=== PATIENT | male | born 1955 | race Caucasian/White ===

== ENCOUNTER → 2016-09-16 | Outpatient (CLI) | payer OTHER ==
[~2016-09-16] MED LIST: ALTACE10 MG PO; ASPIRIN (CHILDR81 MG PO; BRILINTA90 MG PO; FOLIC ACID1 MG PO; LEVEMIR FL100 UNIT/1 SUB-Q; LIPITOR80 MG PO; LOPRESSOR25 MG PO; NOVOLOG FL100 UNIT/1 SUB-Q; VASOTEC2.5 MG PO
--- NOTE | ~2016-09-16 | ENPV ---
Vascular Lower Arterial Plethysmography Procedure Demographics Patient Name BRIDGET CHAMBERS Date of Study 09/16/2016 Patient Number [id number] Gender Male Date of 1955 Age 60 Visit Number [id number] Height Accession Number [id number] Weight Room Number BSA BMI Referring Denia Gutierrez MD Interpreting Daphne Gee Physician Physician Physician Ordering Denia Trujillo Retort Or Condenser Press Operator Physician Brenda TELLES Hotel Service Supervisor Uriah Leo [facility] Conclusions Summary Ankle brachial index on the right is 1.1 no significant arterial disease at rest. The ankle brachial index is greater than 1.4 on the left therefore the ankle vessels are calcified and not compressible. Unable to obtain toe waveforms or pressures. Waveforms appear to be monophasic bilaterally. Procedure Type of Study: Extremities Arteries:Lower Arterial Plethysmography, Ankle/Brachial Indicies. Indications for Study:Ulcer/gangrene. Appropriate Use Criteria:9 Allergies - No known allergies. Blood Pressure:Right arm 137/ mmHg.Left arm 140/ mmHg. Patient Status:Routine. Study Location:Vascular Lab. Technical Quality:Adequate visualization. Velocities are measured in cm/s ; Diameters are measured in cm Pressures + +----+ +---------+--------+ + + ! ! !Right ! !Left ! ! ! + +----+ +---------+--------+ + + !Location ! !Pressure !Ratio ! !Pressure !Ratio ! + +----+ +---------+--------+ + + !Ankle PT ! !135 !0.96 ! !76 !0.54 ! + +----+ +---------+--------+ + + !DP ! !154 !1.1 ! !192 !1.37 ! + +----+ +---------+--------+ + + - Brachial Pressure:Right: 137.Left:140. - IVY:Right: 1.1.Left: 1.37. Signature dtt: Adrián Serna dtd: 09/16/16 1447 Physician Self Edit
== END | disposition disaster alternative care site (69) ==
LOC: GCAR 14:30
DX: L97.519 Non-pressure chronic ulcer of other part of right foot with unspecified severity (principal)

== ENCOUNTER 2016-11-04 23:28 | Inpatient (IN) | payer OTHER ==
[~2016-11-04] VITALS: Ht 172.7 cm; Wt 87.8 kg
--- NOTE | ~2016-11-04 | HP ---
PATIENT'S NAME: BRIDGET CHAMBERS [facility] AGE: 61 Y [address] ROOM: [place] [address] LOCATION: GPCU ADMIT DATE: 11/05/2016 History & Physical DISCHARGE DATE: FAMILY PHYSICIAN: Ronnie Loza MD ATTENDING PHYSICIAN: SUHA HUGO DATE OF SERVICE: CHIEF COMPLAINT: Left arm pain and exertional dyspnea. HISTORY OF PRESENT ILLNESS: This is a 61-year-old male who says that for the last few days he has been experiencing exertional dyspnea and on and off chest tightness and also some left arm pain. Today, in the early afternoon, during rest, the patient again felt this pain in the left arm radiating to the left side of the face, intensity about 4 to 6/10 and is constant. He denies any chest pain now. Patient came here for evaluation. The patient denies any other symptoms. REVIEW OF SYSTEMS: As mentioned in the history of present illness. All other systems were reviewed and they were negative except for those mentioned in the history of present illness. PAST MEDICAL HISTORY: 1. Coronary artery disease, status post CABG and also cardiac stents placed in the past. 2. Last cardiac cath was done in July 2012 and it showed 3-vessel coronary artery disease and the three of the three grafts are patent. Normal left ventricular systolic function. Negative vessel distal anastomosis are extremely small, most likely accountable for his angina. Recommend maximizing medical therapy. 3. Most recent echocardiogram on [facility] and per patient was back in July 2012. At that time, EF was 55% to 60%. 4. Hypertension. 5. Hyperlipidemia. 6. Diabetes, type 2. 7. Gastroesophageal reflux disease. ALLERGIES: NONE. HOME MEDICATIONS: 1. Atorvastatin 80 mg p.o. daily. PATIENT'S NAME: BRIDGET CHAMBERS [facility] AGE: 61 Y [address] ROOM: [place] [address] LOCATION: GPCU ADMIT DATE: 11/05/2016 History & Physical DISCHARGE DATE: FAMILY PHYSICIAN: Ronnie Loza MD ATTENDING PHYSICIAN: SUHA HUGO 2. Lopressor 25 mg p.o. b.i.d. 3. Ramipril 10 mg p.o. b.i.d. 4. Levemir subcutaneous 35 units twice a day. 5. NovoLog subcutaneous 13 units in the morning, 13 units before lunch, and 15 units before dinner. SOCIAL HISTORY: The patient was a former cigarette smoker. He quit back in 1977. He smoke about half pack per day for 5 years. He denies any alcohol or any illegal drug use. FAMILY HISTORY: Both parents had coronary artery disease before age 50. PAST SURGICAL HISTORY: 1. CABG and cardiac stents in the past, several years ago. 2. Cholecystectomy. PHYSICAL EXAMINATION: VITAL SIGNS: At the time of evaluation, temperature 98, heart rate was 84, blood pressure was 166/98, respiration was 14, saturation was 98% on room air. GENERAL APPEARANCE: Alert and oriented x3, in no acute distress. HEENT: Pupils are equally round and reactive to light. Extraocular muscles intact. Anicteric sclerae. Nasal turbinates are normal bilaterally. Moist oral mucosa. RESPIRATORY: Clear to auscultation. No rales. No rhonchi. No crackles. No wheezing. CARDIOVASCULAR: Normal S1, S2. No murmur. No rubs. No gallops. Regular rate and rhythm. ABDOMEN: Soft, nontender, nondistended, bowel sounds present, no mass. EXTREMITIES: He has a trace pitting edema in bilateral lower extremities. NEUROLOGICAL: Grossly nonfocal. SKIN: No ulcer. No rash. No cyanosis. MUSCULOSKELETAL: No joint pain. No muscle pain. Range of motion intact. LABORATORY DATA: CPK 186, troponin 1.14, proBNP 1166. White blood cell 10.2, hemoglobin 15.7, hematocrit 45.9, platelet 223, glucose 469. BUN 26, creatinine 1.5 sodium 133, potassium 4.2, chloride 100, CO2 of 23, calcium 8.5, total protein 7.5, albumin 3.5, AST 31, ALT 46, alkaline phosphatase 156. Total bilirubin 0.4, magnesium 1.9. Anion gap 14.2. INR 0.96, PTT 27. GFR 49. CK-MB 4.6. IMAGING STUDY: Chest x-ray currently is being ordered. PATIENT'S NAME: BRIDGET CHAMBERS [facility] AGE: 61 Y [address] ROOM: [place] [address] LOCATION: GPCU ADMIT DATE: 11/05/2016 History & Physical DISCHARGE DATE: FAMILY PHYSICIAN: Ronnie Loza MD ATTENDING PHYSICIAN: SUHA HUGO EKG on admission on November 04, 2016, at 11:35 p.m., shows sinus rhythm, heart rate of 87 beats per minutes. GA of 174 milliseconds. QRS of 112 milliseconds. QTc of [address] do [address] depression in lead I and aVL in the lateral leads. No ST elevation. No T-wave inversion. There is left axis deviation. Compared to the prior EKG back in July 2012 also had sinus rhythm, heart rate of 63. At that time, also had the left axis deviation, but there was no ST depression in lateral leads in I or aVL. ASSESSMENT AND PLAN: 1. Regarding his NSTEMI: We will continue with ACS protocol with IV heparin drip and I will also start him on IV nitroglycerin drip for the hypertension control given that currently the blood pressure in the 160s, the goal will be keeping below 140. I will continue his home medicationS including aspirin and Lopressor and atorvastatin, but I will hold the ramipril because the patient seems to have acute kidney injury, given his creatinine is at 1.5, GFR of 49, and I do not know what his baseline is. Therefore, I will hold the ramipril in the setting of possible acute kidney injury. We will get an echo in the morning and telemetry monitoring. Cardiology consult in the morning. Cycle enzymes every 6 hours. Further plan will depend on clinical course. In addition, I will check A1c and lipid panel in the morning as well. 2. Regarding his acute kidney injury: I will give hydration with IV normal saline at maintenance rate of 75 mL/h and also do the Mucomyst p.o. He is not acidotic; therefore, I am not going to give him any sodium bicarbonate for now. We will check a renal panel again in the morning. 3. Regarding his diabetes, type 2: We will check A1c in the morning. Currently, the glycemia is 469. I will give him 1 dose of the high dose subcutaneous NovoLog according to the aggressive dose table and then we will put him on the home regimen subcu Levemir. I will do the half of the home regimen. If he takes 35 units twice a day, I will do half of that twice a day and titrate as necessary. In addition, I will put him on a sliding scale with subcu regular insulin q.4 hours with moderate dose. We will titrate as necessary. 4. Regarding his history of coronary artery disease: See #1 for details in the plan. 5. Regarding his hypertension: Currently, blood pressure is 170. I will control with IV nitroglycerin drip with a goal of 140. In addition, continue the home Lopressor with holding parameters. 6. Regarding his gastroesophageal reflux disease: I will give him p.o. Protonix 40 mg daily. 7. Regarding his hyperlipidemia: Continue the home Lipitor 80 mg p.o. daily. 8. He is a full code. PATIENT'S NAME: BRIDGET CHAMBERS [facility] AGE: 61 Y [address] ROOM: [place] [address] [facility] ADMIT DATE: 11/05/2016 History & Physical DISCHARGE DATE: FAMILY PHYSICIAN: Ronnie Loza MD ATTENDING PHYSICIAN: SUHA HUGO 9. His DVT prophylaxis is with IV heparin drip currently. Total time spent in care was 45 minutes, were 10 minutes was spent on chart review, and the remainder of the time was spent on counseling, including going over the plan of care in detail with the patient and the patient's as well as answering all the questions and concerns to their satisfaction. This time also includes physical examination and also interview. Further plan will depend on clinical course. SUHA HUGO MD CC/keiral /[id number] D: [id number] T: 145 HISTORY & PHYSICAL
--- NOTE | ~2016-11-04 | CATH ---
Cardiac Diagnostic + PCI Report Demographics Patient Name TRISH Ortiz Gender Male Date of 1955 Age 61 year(s) Patient Number [id number] Date of Study 11/05/2016 Visit Number [id number] Room Number G63[address] [place] [id number] Ht 172.72 cm Wt 89.3 kg Referring Erik Shaffer MD Primary Physician Physician Denia Penn MD Performing [facility] Secondary Physician Physician Isamar TELLES Diagnostic [facility] Assisting Physician Physician Isamar TELLES Interventional [facility] Physician Hand Packer Physician Isamar TELLES Findings and Conclusions Diagnostic Findings and Conclusion Critical TVD in [place] coronaries. Compared with [facility] in 2013, SVG to RCA is occluded at origin, I did not reimage RCA, known severe disease on prior caths in 2012 and 2010 with diffuse 90% stenosis, proximal, mid and distal RCA. Radial to diagonal graft is patent with obstructive disease, 80% proximally, focal and eccentric, and 60-70% in mid portion that appears hazy/thrombotic. ANDRADE to LAD is patent. There is diffuse disease in Cx, distal to mid stent that is unchanged from 2013, Prox and mid Cx stents are patent with 30% ISR. His [place] vessels distal to grafts are diffusely diseased and very small. Diagnostic Recommendations PCI of radial graft to diagonal. This appears to be the culprit for non stemi. New ST depressions in leads 1,aVL compared with ecg in 2013. [place] RCA has diffuse disease throughout entirety, on cath films in 2013. Interventional Findings and Conclusion Successful PCI of radial graft to diagonal at proximal and mid portion with 2 LOUIS, filter wire used for protection given hazy appearance of lesion in mid graft to avoid distal embolization. Interventional Recommendations Continue current medications. Hydration and followup creatinine. Patient has been instructed to not lift anything more than 5 pounds for 1 week. Optimize LV systolic function. Aggressive risk factor management. Aggressive medical therapy for coronary artery disease. Recommend aggressive risk factor modification. Antiplatelet will be given . Dual Anti-platelet therapy. Cardiac diet . Optimization of medical therapy as an outpatient. I would like to thank Dr. Valencia for the opportunity to participate in the care of Mr. Campbell . Procedure Description The patient was brought to the diagnostic cardiac catheterization-EP laboratory in the fasting, non-sedated state. Informed consent was obtained in the written and verbal form after the risks and benefits were explained. The patient had no further questions and agreed to proceed. The planned puncture-incision site(s) were shaved and prepped with ChloraPrep and draped in the usual sterile manner. Conscious sedation, supplemental oxygen, and pain control medications were delivered by a registered nurse under physician guidance. Surface ECG rhythm, blood pressure measurement, and pulse oximetry were monitored throughout the procedure. Arterial access. The access site was infiltrated with lidocaine. The vessel was entered with the Seldinger technique. A sheath was advanced into the vessel and used for catheter placement. Selective left coronary angiography. A catheter was advanced into the left coronary vessel ostium under Fluoroscopic guidance. Contrast was injected by hand. Images were obtained in multiple projections. Selective right coronary angiography. A catheter was advanced into the right coronary vessel ostium under fluoroscopic guidance. Contrast was injected by hand. Images were obtained in multiple projections. Selective ANDRADE graft angiography. A catheter was advanced into the left internal mammary graft ostium under fluoroscopic guidance. Contrast was injected by hand. Images were obtained in multiple projections. Selective SVG angiography. A catheter was advanced into the graft proximal anastomosis under fluoroscopic guidance. Contrast was injected by hand. Images were obtained in multiple projections. Selective Free Radial angiography. A catheter was advanced into the free radial graft proximal anastomosis under fluoroscopic guidance. Contrast was injected by hand. Images were obtained in multiple projections. Angioplasty and Stent Placement: A guiding catheter was used to intubate the vessel. A 0.14 wire was then used to cross the lesion. A balloon catheter was placed across the lesion and inflated. The balloon catheter was then removed. A Drug Eluting Stent was placed and inflated. Post placement angiograms were performed. Arterial artery hemostasis. Hemostasis was achieved. The patient was transferred to a regular nursing floor via cart accompanied by a nurse. The patient left the laboratory in stable condition. Diagnostic Cath Status: Urgent Interventional Cath Status: Urgent Procedure Procedure Type Diagnostic procedure:Angiography:, Coronary Angios w/Grafts PCI procedure:Drug Eluting Coronary Stent:, Graft, PTCA:, Graft Indications: Non-ST elevation UT. The procedure was explained in detail to the patient. Risks, complications and alternative treatments were reviewed. Written consent was obtained. Medications Reviewed with Patient prior to Procedure. Angiographic Findings Dominance: Right Cardiac Arteries and Lesion Findings LMCA: Normal (0% Stenosis). LAD: ANDRADE to LAD patent Lesion on Prox LAD: 30% stenosis . Lesion on Mid LAD: 100% stenosis . Lesion on 1st Dia% stenosis . LCx: No significant changes from 2013 Cx small OM1 small Lesion on Prox CX: 50% stenosis . The lesion was previously treated with the following techniques: stent unknown type. This is in-stentrestenosis. Lesion on Mid CX: 60% stenosis . Lesion on Dist CX: 80% stenosis . RCA: Lesion on Prox RCA: Ostial.100% stenosis .Chronic total occlusion. Graft Lesions Lesion on Aorta Right to Dist RCA: Proximal anastomosis.100% stenosis . Lesion on Aorta Left to 1st Diag: Proximal body.80% stenosis 16 mm length reduced to 0%. Pre procedure REGIS III flow was noted. Post Procedure REGIS III flow was present. The lesion was diagnosed as a high risk lesion.The lesion was eccentric.Culprit lesion. Treatment results:Interventional treatment was successful. Devices used - Emerge Balloon 2.5 x 15. 1 inflation(s) to a max pressure of: 12 sly. - Promus Premier 3.0 x 16 Stent. 1 inflation(s) to a max pressure of: 12 sly. Lesion on Aorta Left to 1st Diag: Middle body.70% stenosis 16 mm length reduced to 0%. Pre procedure REGIS III flow was noted. Post Procedure REGIS III flow was present. The lesion was diagnosed as a high risk lesion.Culprit lesion. Treatment results:Interventional treatment was successful. Devices used - Filterwire 190 cm. Number of passes: 1. - Promus Premier 3.0 x 16 Stent. 1 inflation(s) to a max pressure of: 12 sly. - Emerge Balloon 3.0 x 12. 1 inflation(s) to a max pressure of: 14 sly. - BMW Wire .014 x 190. Number of passes: 1. Cardiac Grafts - There is a Vein graft that originates at the Aorta Right and attaches to the Dist RCA ( occluded). - There is a Radial graft that originates at the Aorta Left and attaches to the 1st Diag. - There is a ANDRADE graft that originates at the ANDRADE and attaches to the Dist LAD (Patent). Coronary Tree Procedure Data Procedure Date Date: 11/05/2016Start: 09:27 AMEnd: 10:29 AM Entry Locations - Retrograde Percutaneous access was performed through the Right Femoral artery (Primary location). A 6 Fr sheath was inserted. Hemostasis was successfully obtained using Angio-Seal STS PLUS ([place]). Closure Comments: Deployed by Danial. Procedure Medications Order and Administration + + + + + !Time !Medication !Dosage !Route ! + + + + + !11/05/2016 09:25 !Versed !1 mg !I.V. ! !AM ! ! ! ! + + + + + 11/05/2016 09:25 !Fentanyl !50 mcg !I.V. ! !AM ! ! ! ! + + + + + 11/05/2016 09:33 !Oxygen !2 l/min !NC ! !AM ! ! ! ! + + + + + !11/05/2016 09:34 !Oxygen !2 l/min !Mask ! !AM ! ! ! ! + + + + + !11/05/2016 09:43 !Angiomax (Bivalirudin) !67.5 mg !I.V. bolus ! !AM !(ACC_5) ! ! ! + + + + + !11/05/2016 09:45 !Angiomax (Bivalirudin) !1.75 mg/kg/hr!I.V. drip ! !AM !(ACC_5) ! ! ! + + + + 11/05/2016 09:56 !Nipride !100 mcg !I.C. ! !AM ! ! ! ! + + + + + !11/05/2016 10:00 !Nipride !100 mcg !I.C. ! !AM ! ! ! ! + + + + + !11/05/2016 10:05 !Nipride !100 mcg !I.C. ! !AM ! ! ! ! + + + + + !11/05/2016 10:11 !Nipride !100 mcg !I.C. ! !AM ! ! ! ! + + + + + !11/05/2016 10:19 !Oxygen !2 !Mask ! !AM ! ! ! ! + + + + + !11/05/2016 10:20 !Brilinta (Ticagrelor) !180 mg !P.O. ! !AM !(ACC_20) ! ! ! + + + + + !11/05/2016 10:23 !Nitroglycerin ! !I.V. drip ! !AM ! ! ! ! + + + + + Devices Used - A6 Fr. BS JL 4 Diag. Catheterwas used for:Left coronary angiography. - A5 Fr. BS JR 4 Diag. Catheterwas used for:Right coronary angiography. - A6 Fr. JR4 Guide Catheterwas used for:RCA Intervention. - A5 Fr. BS JR 4 Diag. Catheterwas used for:Radial Graft. Contrast Material - Isovue [id number] ml Fluoroscopy Time: Diagnostic: 19:24 minutes. Total: 19:24 minutes. Fluoroscopy Dose: Diagnostic: 2607 mGy. Total: 2607 mGy. Estimated Blood Loss: 15 ml. Additional [facility] PCI Information PCI Indication:PCI for high risk Non-STEMI or unstable angina. Medical History Allergies - Other:(Acetominophen, Phenylephrine, Chlorpheniramine). Risk Factors The patient risk factors include:prior PCI on 08/28/2010;prior CABG;treated hypercholesterolemia, treated hypertension, insulin-treated diabetes mellitus, last creatinine: 1.1 mg/dl, creatinine clearance: 86.82 ml/min, dyslipidemia and former tobacco use. Admission Data Admission Date: 11/05/2016 Admission Time: 12:30 AM Admit Source: Emergency department Insurance Payors: Private health insurance. Admission Medications + +------+------+ + + + + !Medication !Dosage!Times !Last !Last !Administered !Comments ! ! ! !Per !Delivery !Delivery ! ! ! ! ! !Day !Date !Time ! ! ! + +------+------+ + + + + !Beta ! ! ! ! !Yes ! ! !Aya ! ! ! ! ! ! ! !(any) ! ! ! ! ! ! ! + +------+------+ + + + + Clinical Evaluation Leading to Procedure - The patient's CAD presentation was assessed as: Non-STEMI. - The patient's anginal syndrome during the past two weeks was assessed as: Class IV according to the [place] Cardiovascular Society Classification System (CCS). Anti-anginal medications were prescribed during the past two weeks. The medication is: Beta Blockers. Hemodynamics Condition: Rest O2 Consumption: Estimated: 240.91Heart Rate: 75 bpm Pressures (mmHg) +-----+ + !Site !Pressure ! +-----+ + !AO !112/54 (74) ! +-----+ + !AO !115/ (88) ! +-----+ + Shunts Oxygen Values O2 Capacity 213.52 O2 Consumption 240.91 Signatures dtt: ISAMAR LINARES dtd: 11/05/16 0927 Physician Self Edit
--- NOTE | ~2016-11-04 | ER ---
PATIENT'S NAME: BRIDGET CHAMBERS [facility] AGE: 61 Y [address] ROOM: [place] [address] LOCATION: GPCU ADMIT DATE: 11/05/2016 ER/Outpatient Report DISCHARGE DATE: FAMILY PHYSICIAN: Ronnie Loza MD ATTENDING PHYSICIAN: SUHA HUGO Time Of Arrival: 2331 hours. Time of Evaluation: 2331 hours. CHIEF COMPLAINT: Chest pain. HISTORY OF PRESENT ILLNESS: The patient is a 61-year-old male who presents to the emergency department today with a chief complaint of chest pain. He also reports that he has had some shortness of breath and dyspnea on exertion over the past 3 days. He reports it is primarily left arm pain. It increased today. He denies any diaphoresis with this. He denies any fevers or chills. No nausea or vomiting. No diarrhea or constipation. PAST MEDICAL HISTORY: Coronary artery disease, insulin-dependent diabetes, dyslipidemia, hypertension, and gastroesophageal reflux disease. PAST SURGICAL HISTORY: CABG, cholecystectomy, eye, and stent placement in 2010. SOCIAL HISTORY: The patient denies any tobacco, alcohol, or illicit drug use. ALLERGIES: TO A SORT OF COLD MEDICINE. MEDICATIONS: Please see list. PRIMARY CARE DOCTOR: Dr. Loza. CLINICAL CARE MANAGER: Dr. Valencia. REVIEW OF SYSTEMS: All systems are reviewed by myself and are negative with the exception of those discussed in the HPI and past medical history. PATIENT'S NAME: BRIDGET CHAMBERS [facility] AGE: 61 Y [address] ROOM: [place] [address] LOCATION: GPCU ADMIT DATE: 11/05/2016 ER/Outpatient Report DISCHARGE DATE: FAMILY PHYSICIAN: Ronnie Loza MD ATTENDING PHYSICIAN: SUHA HUGO PHYSICAL EXAMINATION: VITAL SIGNS: Weight 90 kg. Blood pressure 161/89, pulse 88, respiratory rate 18, temperature 96.7, and oxygen saturation 95% on room air. GENERAL: The patient is a 61-year-old male who appears of stated age, in no acute distress. Well developed and well nourished. HEENT: Normocephalic and atraumatic. Pupils are equal, round, and reactive to light. NECK: Supple. There is no nuchal rigidity. CARDIOVASCULAR: Regular rate and rhythm. No murmurs, rubs, or gallops. LUNGS: Clear to auscultation bilaterally. No wheezes, rales, or rhonchi. ABDOMEN: Soft, nontender, and nondistended. No rebound, rigidity, or guarding. MUSCULOSKELETAL: The patient moves all 4 extremities. SKIN: Warm and dry. LABORATORY DATA AND X-RAYS: EKG was obtained and was interpreted by myself at 2339 hours and shows sinus rhythm with a rate of 87, left axis deviation, normal interval. No ST elevation. There is an ST depression in I and aVL, which is new from 07/29/2012. No T-wave inversions. CBC is normal. Coags are normal. CMP is unremarkable, except for a glucose of 133, BUN 26, creatinine 1.5, and glucose is 469. LFTs are normal. Magnesium is 1.9. CK is normal. CK-MB is 4.6, troponin is 1.14, proBNP is 1166. One-view chest x-ray was obtained and was interpreted by myself and shows no acute process. IMPRESSION: 1. Oon-JS-hnedamoaz myocardial infarction. 2. ST depression in I and aVL. 3. Elevated proBNP. 4. Acute kidney injury. 5. Uncontrolled diabetes mellitus. 6. Initial visit. EMERGENCY DEPARTMENT COURSE: The patient was brought back to the examination room. He was seen and evaluated by myself. IV was established. Laboratory analysis and imaging were obtained, as described above. The patient has evidence of ischemic heart image on his EKG as well as has elevated troponin. It does appear that he has a sya-SN-rhquvqbnh myocardial infarction. I have discussed the results with the patient's . I have contacted Dr. Hugo with the Hospitalist Service. He has seen and evaluated the patient down here in the emergency department. We have initiated the patient on heparin drip with heparin bolus. He was also PATIENT'S NAME: BRIDGET CHAMBERS [facility] AGE: 61 Y [address] ROOM: [address] [place], [place] [address] [facility] ADMIT DATE: 11/05/2016 ER/Outpatient Report DISCHARGE DATE: FAMILY PHYSICIAN: Ronnie Loza MD ATTENDING PHYSICIAN: SUHA HUGO given aspirin 81 mg. The patient was agreeable with plans and was without further questions at the time of disposition. The patient was admitted under the care of the Hospitalist Service in stable condition. DO MARICHUY KOHLI/yumkio /[id number] d: 11/05/16 1130 t: 11/06/162052, OUTPATIENT REPORT
--- NOTE | ~2016-11-04 | DS ---
PATIENT'S NAME: BRIDGET CHAMBERS [facility] AGE: 61 Y [address] ROOM: [address] [place] [address] LOCATION: GPCU ADMIT DATE: 11/05/2016 Discharge Summary DISCHARGE DATE: 11/06/2016 FAMILY PHYSICIAN: Ronnie Loza MD ATTENDING PHYSICIAN: Adolph Wolfe PRINCIPAL DISCHARGE DIAGNOSIS: Cra-IU-vsnnifpqp myocardial infarction. SECONDARY DIAGNOSES: 1. Coronary artery disease, diffuse. 2. 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 3. Hypertension. 4. Dyslipidemia. 5. Gastroesophageal reflux disease. 6. Acute kidney injury, present on admission, now resolved. CONSULTATION: Cardiology, Dr. Isamar Giordano, on 11/05/2016. PROCEDURES: Cardiac catheterization with PCI, radial graft to diagonal with two drug-eluting stents. BRIEF HISTORY: Mr. Chambers is a 61-year-old male with prior history of coronary artery disease, status post coronary artery bypass grafting and cardiac stents. He had last catheterization in July 2012, at which time, his grafts were patent and had normal left ventricle function. He presented after developing chest pain radiating to the left arm while at rest, it was 4 to 6 out of 10 in intensity and constant. His troponin level was elevated at 1.14 with a proBNP 1166 on admission. He was taken to the cath laboratory technician. Please see Dr. Giordano's note regarding that for the details. He had stents placed as above. He is now pain free. Vital signs are stable. He is afebrile. He has some residual troponin level. He has been seen by Dr. Bravo, who agrees with plan for discharge to home, follow up with Dr. Valencia in 2 weeks. He should have a proBNP and a basic metabolic panel drawn before that visit. INSTRUCTIONS AT DISCHARGE: 1. Diet: ADA, AHA, and low fat. 2. Activity: Groin precautions x5 days. 3. Follow up with Dr. Valencia of cardiology in 2 weeks as above. 4. I have recommended that the patient see his primary care physician within 1 week of hospital discharge as are the nationwide recommendations for standard of care. The patient is not sure he could be able to get in PATIENT'S NAME: BRIDGET CHAMBERS [facility] AGE: 61 Y [address] ROOM: [facility] [place] [address] LOCATION: GPCU ADMIT DATE: 11/05/2016 Discharge Summary DISCHARGE DATE: 11/06/2016 FAMILY PHYSICIAN: Ronnie Loza MD ATTENDING PHYSICIAN: Adolph Wolfe with Dr. Loza. I still recommended that he see his PCP. MEDICATIONS AT THE TIME OF DISCHARGE: 1. Aspirin 81 mg p.o. daily. 2. Lipitor 80 mg p.o. q.h.s. 3. Enalapril 2.5 mg p.o. daily. 4. NovoLog FlexPen 13 units earlier in the day and 15 at h.s. 5. Detemir insulin 35 units subcu twice daily. 6. Metoprolol 25 mg twice daily. 7. Folic acid once daily. 8. He is to start Brilinta 90 p.o. twice daily. CONDITION AT DISCHARGE: Good. Greater than 30 minutes in the discharge process. MOIZ AGUIRRE MD LM/modl /[id number] CC: MD Isamar Jean-Baptiste MD Daniel J McGowan, MD d: 11/07/16 0259 t: 11/08/16 1233, DISCHARGE SUMMARY
--- NOTE | ~2016-11-04 | CON ---
PATIENT'S NAME: BRIDGET CHAMBERS [facility] AGE: 61 Y [address] ROOM: [place] [address] LOCATION: GPCU ADMIT DATE: 11/05/2016 Consultation DISCHARGE DATE: FAMILY PHYSICIAN: Ronnie Loza MD ATTENDING PHYSICIAN: SUHA HUGO DATE OF CONSULTATION: 11/05/2016 REFERRING PHYSICIAN: Edmund Valencia MD REASON FOR CONSULTATION: Non ST-elevation myocardial infarction. PRIMARY POLITICAL RESEARCHER: Dr. Edmund Valencia. CHIEF COMPLAINT: Chest pain. HISTORY OF PRESENTING ILLNESS: The patient is a very pleasant 61-year-old male who has history of four-vessel CABG; ANDRADE to LAD, SVG to OM that is known to be occluded, he also has a radial artery to diagonal, as well as SVG to RCA. The patient also has history of insulin-dependent diabetes mellitus, dyslipidemia, hypertension, and acid reflux. His last heart catheterization was in 2012 with patent proximal circumflex stent and he was continued on medical therapy. The patient reports that for the past three days he has been having shortness of breath and dyspnea on exertion as well as left arm pain and jaw pain. It has been getting progressively worse, and he is unable to exert, and since he started having more diaphoresis as well as left arm pain, he was concerned about this and came to the emergency room. He does not have any fever, chills, nausea, vomiting, stroke-like symptoms, bleeding issues, diarrhea, or constipation. REVIEW OF SYSTEMS: All review of systems discussed with the patient, pertinent positives and negatives mentioned in the history of presenting illness. PAST MEDICAL HISTORY: 1. Coronary artery disease, status post four-vessel CABG. Last cath showed 3/4 grafts that were patent. The SVG to OM was known to be occluded. He did have circ stenting done in 2010. PATIENT'S NAME: BRIDGET CHAMBERS [facility] AGE: 61 Y [address] ROOM: [place] [address] LOCATION: GPCU ADMIT DATE: 11/05/2016 Consultation DISCHARGE DATE: FAMILY PHYSICIAN: Ronnie Loza MD ATTENDING PHYSICIAN: SUHA HUGO 2. Insulin-dependent diabetes mellitus. 3. Dyslipidemia. 4. Hypertension. 5. GERD. PAST SURGICAL HISTORY: Four-vessel CABG, cholecystectomy. FAMILY HISTORY: Positive for premature coronary artery disease in both parents in their 50s. SOCIAL HISTORY: The patient was a former cigarette smoker, he quit in 1977. He does not have any illicit drug abuse or alcohol use. HOME MEDICATIONS: 1. Atorvastatin 80 daily. 2. Lopressor 25 b.i.d. 3. Ramipril 10 b.i.d. 4. Levemir 35 units twice a day. 5. NovoLog 13 in the morning, 13 before lunch, and 15 before dinner. ALLERGIES: NONE. PHYSICAL EXAMINATION: VITAL SIGNS: Blood pressure 160/80, afebrile; heart rate 70s; O2 saturations 98% on room air. GENERAL APPEARANCE: The patient is alert and oriented, not in any apparent distress. HEENT: Pupils are reactive. Sclerae are white. No xanthelasmas. Mucous membranes moist. RESPIRATORY: Clear to auscultation bilaterally. Decreased breath sounds in the bases. CARDIOVASCULAR: S1, S2. Regular rate and rhythm. No murmurs, gallops, or rubs. ABDOMEN: Soft. Bowel sounds positive. EXTREMITIES: Mild lower extremity edema bilaterally. NEURO: Grossly intact. Able to move all extremities against gravity. MUSCULOSKELETAL: No joint pain. Good range of motion. SKIN: Warm and dry. LABORATORY DATA: CPK 186 and second set 190. His CK-MB was elevated at 8.1. Troponin initially 1.1, next set was 2.8, and the third set is 3.5. A1c is 9. LDL is PATIENT'S NAME: BRIDGET CHAMBERS [facility] AGE: 61 Y [address] ROOM: [place] [address] [facility] AD[facility] DATE: 11/05/2016 Consultation DISCHARGE DATE: FAMILY PHYSICIAN: Ronnie Loza MD ATTENDING PHYSICIAN: SUHA HUGO 68. Magnesium 2.3. Alkaline phosphatase 156. Sodium 140, potassium 3.7, glucose 159, BUN 24, creatinine 1.1. WBC 10.2, H and H 15.7 and 45.9, platelets 2.23. Chest x-ray with no evidence of acute cardiopulmonary disease. A 2D echo from 2012 showed normal LV size and systolic function, LVEF 55% to 60%, mild aortic valve stenosis. EKG, compared to the EKG in July of 2012, there is mild ST depression in leads I and aVL. ASSESSMENT AND PLAN: 1. Non ST-elevation myocardial infarction. 2. Acute kidney injury that has improved with IV hydration. 3. Diabetes mellitus type 2 that is poorly controlled with an A1c of 9. 4. History of coronary artery disease, status post 4-vessel coronary artery bypass graft. Three grafts were patent in 2012. ANDRADE to LAD, SVG to RCA, and radial graft to diagonal were patent, but the SVG to OM was completely occluded and PCI of the proximal and mid circumflex was performed in 2010 with significant diffuse disease distal to stents. 5. Hypertension. 6. Hyperlipidemia. 7. Gastroesophageal reflux disease. PLAN: At this time, he definitely has evidence of acute coronary syndrome and non-ST elevation [place] with elevated cardiac biomarkers as well as new ECG changes with ST depression in leads I and aVL. I will get an echocardiogram to evaluate his LV systolic function and look for wall motion abnormalities. The patient is already on ACS protocol with heparin and nitroglycerin drip and he is currently chest pain free. Risks and benefits of cardiac cath discussed with the patient given the non-ST elevation [place]. The patient is agreeable to proceed. His risks include bleed, bruise, infection one in 100 cases, risk of , [place], stroke, CVA, bleed, losing a limb, ending up on dialysis less than 1 in 1000 cases. The patient is a good candidate for dual-antiplatelet therapy. I am seeing this patient at the request of Susannah and Dr. Valencia since he is not here today. Thank you very much for allowing us to participate in the care of Mr. Chambers. We will continue to follow along with you, and we will have the patient follow up with Dr. Valencia in his outpatient clinic after discharge. PATIENT'S NAME: BRIDGET CHAMBERS [facility] AGE: 61 Y [address] ROOM: [place] [address] [facility] AD[facility] DATE: 11/05/2016 Consultation DISCHARGE DATE: FAMILY PHYSICIAN: Ronnie Loza MD ATTENDING PHYSICIAN: SUHA HUGO MD EDWIN MELENDEZ/keiral /[id number] d: 11/06/16 0158 t: 11/09/16 0803, CONSULTATION REPORT
--- NOTE | ~2016-11-04 | ECHO ---
Transthoracic Echocardiography Report (TTE) Demographics Patient Name BRIDGET CHAMBERS Date of Study 11/05/2016 W Patient Number [id number] Visit Number [id number] Date of 1955 Room Number G6312 Accession Number [id number] Gender Male Age 61 year(s) Referring Yaneth Ledezma MD [employer] Nancy Valle RVT Physician Physician Interpreting Giuliana Penn Voltmeter Operator Physician MD Supervising Ordering Physician Yaneth Ledezma MD, MD/P Nurse Stress Rn Case Manager Conclusions Summary The estimated left ventricular ejection fraction is 45-50%. Inferolateral wall is mildly hypokinetic. Mild concentric left ventricular hypertrophy. Diastolic assessment reveals Grade II pseudonormal diastolic function . Mildly reduced right ventricular function. IVC measures 1.18 cm with partial inspiratory collapse. Mild to moderate mitral annular calcification. Trivial mitral regurgitation by color Doppler. The aortic valve is mildly sclerotic. Trivial tricuspid regurgitation by color Doppler. Procedure Type of Study TTE procedure:2D Echocardiogram. Procedure Date Date: 11/05/2016 Start: 07:58 AM Study Location: Inpatient Portable Technical Quality: Adequate visualization Indications:NSTEMI. Appropriate Use Criteria: 9 Patient Status: Routine HR: 62 bpm BP: 134/65 mmHg Allergies - Other:(Acetominophen, Phenylephrine, Chlorpheniramine). M-Mode/2D Measurements LV Diastolic Dimension: 4.25 cm LV Systolic Dimension: 3.68 cm LV Septum Diastolic: 1.66 cm LV PW Diastolic: 1.4 cm AO Root Dimension: 2.4 cm Cardiac Output: 3.31 l/min AV Cusp Separation: 1.6 cm RV Diastolic Dimension: 2.69 cm LVOT: 2 cm LVOT VTI: 17 cm RV Base: 2.24 cm LV Stroke volume: 53.38 ml RV Length: 5.93 cm TAPSE: 1.02 cm TDI-S': 9.54 cm/s Doppler Measurements AV Peak Velocity: 0.85 m/s MV Peak E-Wave: 1.35 m/s AV Peak Gradient: 2.87 mmHg MV Peak A-Wave: 0.56 m/s AV Mean Gradient: 2 mmHg MV E/A Ratio: 2.43 LVOT Peak Velocity: 0.63 m/s MV P1/2t: 58 msec TR Gradient:23.43 mmHg PV Peak Velocity: 0.68 m/s Estimated RAP:10 mmHg PV Peak Gradient: 1.83 mmHg Estimated RVSP: 33 mmHg Estimated PASP: 33.43 mmHg E' Septal Velocity: 0.04 m/s A' Septal Velocity: 0.07 m/s E' Lateral Velocity: 0.1 m/s A' Lateral Velocity: 0.08 m/s Findings Left Ventricle Mild concentric left ventricular hypertrophy. Diastolic assessment reveals Grade II pseudonormal diastolic function . Right Ventricle Mildly reduced right ventricular function. Left Atrium The left atrium is mildly dilated. Right Atrium IVC measures 1.18 cm with partial inspiratory collapse. Mitral Valve Mild to moderate mitral annular calcification. Trivial mitral regurgitation by color Doppler. Aortic Valve The aortic valve is mildly sclerotic. Tricuspid Valve Trivial tricuspid regurgitation by color Doppler. Pulmonic Valve Normal pulmonic valve structure and function. Pericardial Effusion No evidence of pericardial effusion. Miscellaneous Visualized portions of the aortic root and ascending aorta appear normal in size. Pleural Effusion No evidence of pleural effusion. Signature dtt: ANEL LINARES dtd: 11/05/16 0758 Physician Self Edit
[2016-11-04 23:42] LABS: BASOPHIL # 0.1 K/uL (0.0-0.2); BASOPHIL % 0.6 %; EOSINOPHIL # 0.2 K/uL (0.0-0.5); EOSINOPHIL % 1.6 %; HEMATOCRIT 45.9 % (37.0-53.0); HEMOGLOBIN 15.7 g/dL (11.0-16.0); IMMATURE GRANULOCYTE # 0.1 K/uL (0.0-0.3); IMMATURE GRANULOCYTE % 0.7 %; LYMPHOCYTE # 2.7 K/uL (0.8-4.0); LYMPHOCYTE % 26.6 %; MCH 29.6 pg (27.0-34.0); MCHC 34.2 gm/dL (32.0-36.5); MCV 86.6 fl (83.0-98.0); MONOCYTE # 0.8 K/uL (0.0-1.0); MONOCYTE % 8.2 %; MPV 9.3 fl (9.4-12.4); NEUTROPHIL # (ANC) 6.3 K/uL (1.4-9.0); NEUTROPHIL % 62.3 %; NRBC % 0 /100WBC (0-0.00); PLATELET COUNT 223 K/uL (150-450); RDW-CV 12.8 % (11.9-14.6); WBC 10.2 K/uL (4.0-11.0)
[2016-11-04 23:52] LABS: INR - (THERAPEUTIC) 0.96 (0.92-1.07); PROTIME 10.1 SECONDS (9.8-11.4); PTT 27 SECONDS (25-32)
[2016-11-05] LABS: ALBUMIN 3.5 gm/dL (3.5-5.0); ANION GAP 14.2 (10.0-19.0); CALCIUM 8.5 mg/dL (8.5-10.5); CREATININE 1.5 mg/dL (0.6-1.3); MAGNESIUM 1.9 mg/dL (1.8-2.6); POTASSIUM 4.2 mMol/L (3.7-5.1); TOTAL BILIRUBIN 0.4 mg/dL (0.0-1.5); TOTAL PROTEIN 7.5 g/dL (6.0-8.4)
[2016-11-05] MEDS ORDERED: LIPITOR80 MG PO (01:28)
[2016-11-05] MEDS ORDERED: FOLIC ACID1 MG PO (01:29)
[2016-11-05] MEDS ORDERED: LOPRESSOR25 MG PO (01:29)
[2016-11-05] MEDS ORDERED: LEVEMIR FL100 UNIT/1 SUB-Q (01:31)
[2016-11-05] MEDS ORDERED: ALTACE10 MG PO (01:31)
[2016-11-05] MEDS ORDERED: NOVOLOG FL100 UNIT/1 SUB-Q ×2 (01:32→01:33)
[2016-11-05 06:45] LABS: CALCIUM 8.4 mg/dL (8.5-10.5); CREATININE 1.1 mg/dL (0.6-1.3); MAGNESIUM 2.3 mg/dL (1.8-2.6); POTASSIUM 3.7 mMol/L (3.7-5.1)
[2016-11-05 06:46] LABS: ANION GAP 13.7 (10.0-19.0)
[2016-11-06 05:44] LABS: ALBUMIN 3.1 gm/dL (3.5-5.0); ANION GAP 9.7 (10.0-19.0); POTASSIUM 3.7 mMol/L (3.7-5.1); TOTAL PROTEIN 6.6 g/dL (6.0-8.4)
[2016-11-06 05:46] LABS: TOTAL BILIRUBIN 0.6 mg/dL (0.0-1.5)
[2016-11-06] MEDS ORDERED: ASPIRIN (CHILDR81 MG PO (10:14)
[2016-11-06] MEDS ORDERED: VASOTEC2.5 MG PO (10:17)
[2016-11-06] MEDS ORDERED: BRILINTA90 MG PO (10:22)
== END 2016-11-06 12:00 | disposition disaster alternative care site (69) | DRG 247 ==
LOC: GMED 23:28 → GPCU 11-05 00:30
PROVIDERS: Emergency Medicine; Internal Medicine Interventional Cardiology; ADMIT Internal Medicine
DX: I21.4 Non-ST elevation (NSTEMI) myocardial infarction (principal); N17.9 Acute kidney failure, unspecified; E88.81 Metabolic syndrome and other insulin resistance; E11.65 Type 2 diabetes mellitus with hyperglycemia; I25.10 Atherosclerotic heart disease of native coronary artery without angina pectoris; I10 Essential (primary) hypertension; E78.5 Hyperlipidemia, unspecified; K21.9 Gastro-esophageal reflux disease without esophagitis; Z95.1 Presence of aortocoronary bypass graft; Z95.5 Presence of coronary angioplasty implant and graft; Z79.4 Long term (current) use of insulin; Z87.891 Personal history of nicotine dependence; Z82.49 Family history of ischemic heart disease and other diseases of the circulatory system
CPT/HCPCS: C1725; C1760; C1769; C1874; C1884; C1887; C9604; J0583; J1644; J2250; J3010; J3475; J7030; J7060